=== PATIENT | male | born 1955 | race Caucasian/White ===

== ENCOUNTER → 2021-01-28 07:32 | Outpatient (CLI) | payer MEDICARE, OTHER, SELFPAY ==
--- NOTE | 2021-01-28 07:35 | ECHOD_ITS ---
Reason For Study: Afib, Aflutter Procedure This was a 2D Doppler, Color Flow transthoracic echocardiogram. Exam performed in department. Left Ventricle Normal LV size. Left ventricular systolic function is normal. The estimated ejection fraction is 55 %. No regional wall motion abnormalities noted. Right Ventricle Normal RV size. Normal systolic function. Atria Normal left atrium. Normal right atrium. Mitral Valve Normal mitral valve. Tricuspid Valve Normal tricuspid valve. Mild (1+) tricuspid valve insufficiency. Pulmonary artery systolic pressure is 26 mmHg. Aortic Valve Normal aortic valve. Trisinus/trileaflet aortic valve. Pulmonic Valve Normal pulmonic valve. Great Vessels Normal aortic root. The pulmonary artery is normal size. Normal inferior vena cava. Pericardium/Pleural No pericardial effusion. Medication Diluted definity 3ml given slow IV push to enhance endocardial definition. MMode/2D Measurements & Calculations LVIDd: 4.4 cm IVSd: 1.2 cm Ao root diam: 3.5 cm LVIDs: 3.3 cm LVPWd: 1.0 cm RVDd: 4.5 cm FS: 25.5 % LAV(MOD-bp): 57.0 ml LVAd ap4: 37.0 cm2 SV(MOD-sp4): 74.5 ml LAV(MOD-bp) Indexed: 24.3 ml/m2 LVLd ap4: 8.6 cm LAV(MOD-sp2): 48.9 ml EDV(MOD-sp4): 133.9 ml LAV(MOD-sp4): 57.8 ml EDV(sp4-el): 134.8 ml LVAs ap4: 22.0 cm2 LVLs ap4: 7.1 cm ESV(MOD-sp4): 59.5 ml ESV(sp4-el): 58.1 ml EF(MOD-sp4): 55.6 % EF(sp4-el): 56.9 % SV(sp4-el): 76.7 ml LA A4 area: 20.9 cm2 LA dimension(2D): 4.2 cm RA A4 area: 12.4 cm2 Doppler Measurements & Calculations MV E max víctor: 77.8 cm/sec Lat Peak E' Víctor: 10.8 cm/sec Med Peak E' Víctor: 7.9 cm/sec MV A max víctor: 36.2 cm/sec E/E' lat: 7.2 E/E' med: 9.9 MV E/A: 2.1 Ao V2 max: 121.0 cm/sec LV V1 max: 99.3 cm/sec PA V2 max: 102.9 cm/sec Ao max P.9 mmHg LV V1 max P.9 mmHg Ao V2 mean: 78.0 cm/sec Ao mean P.8 mmHg Ao V2 VTI: 27.1 cm TR max víctor: 235.1 cm/sec TR max P.1 mmHg ECHO/Echo Complete W/ Contrast Interpretation Summary Normal LV size. Left ventricular systolic function is normal. The estimated ejection fraction is 55 %. Pulmonary artery systolic pressure is 26 mmHg. Structurally normal valves. Ordering Physician: Quinton Colon Referring Physician: Wilma Dial Performed By: Lana Sauceda, RDKAVITHA, RVT
== END ==
PROVIDERS: PCP Internal Medicine; Referring Provider Internal Medicine Cardiovascular Disease; Visit Provider Internal Medicine Cardiovascular Disease
DX: I48.0 Paroxysmal atrial fibrillation (principal)
CPT/HCPCS: 93306; Q9957; A4216; C8929; J3490

== ENCOUNTER → 2022-08-01 | Outpatient (CLI) | payer MEDICARE, OTHER, SELFPAY | END | disposition home or self-care (01) | LOC: PSN 07:02 | PROVIDERS: PCP Internal Medicine; Visit Provider Physician Assistant Medical | DX: R00.1 Bradycardia, unspecified (principal); I48.0 Paroxysmal atrial fibrillation | CPT/HCPCS: 93225; 93226 ==

== ENCOUNTER → 2023-06-04 | Outpatient (CLI) | payer MEDICARE, OTHER, SELFPAY ==
--- OUTSIDE RECORDS SUMMARY | 2023-06-04 09:32 | XMS RPT_ITS | CCD ---
Author Name Unknown Address [email or web address] [place] [address] Organization [facility] Care Team Providers Care Custody Officer Name Role Phone Zarrabi, Wilma Unavailable Unavailable Zarrabi, Wilma Unavailable Unavailable Zarrabi, Wilma Unavailable Unavailable Zarrabi, Wilma Unavailable Fady Tariq Unavailable Unavailable Zarrabi, Wilma Unavailable Unavailable Unavailable Yojana ORTIZ Wilma Primary Care Provider ZARRABI, WILMA Primary Care Unavailable ARI PEREZ Attending Unavailable CHRIS CHAVEZ Attending Unavailable ZARRABI, WLIMA Primary Care Unavailable CHRIS CHAVEZ Admitting Unavailable CHAVEZCHRIS Referring Unavailable ZARRABI, WILMA Primary Care Unavailable CHRIS CHAVEZ Attending Unavailable ZARRABI, WILMA Primary Care Unavailable CHRIS CHAVEZ Admitting Unavailable KENNETH HANNA Attending Unavailable CHRIS CHAVEZ Referring Unavailable ZARRABI, WILMA Primary Care Unavailable CHRIS CHAVEZ Admitting Unavailable DAI FRANKS Attending Unavailable CHRIS CHAVEZ Referring Unavailable ZARRABI, WILMA Primary Care Unavailable TANJA CHRISPHYLLIS WHITNEY Admitting Unavailable KJ HENSON Attending Unavailable CHRIS CHAVEZ Referring Unavailable ZARRABI, WILMA Primary Care Unavailable CHRIS CHAVEZ Admitting Unavailable DAI FRANKS Attending Unavailable CHRIS CHAVEZ Referring Unavailable ZARRABI, WILMA Primary Care Unavailable CHRIS CHAVEZ Admitting Unavailable CYNDI RAMIREZ Attending Unavailable CHRIS CHAVEZ Referring Unavailable ZARRABI, WILMA Primary Care Unavailable CHRIS CHAVEZ Admitting Unavailable DAI FRANKS Attending Unavailable CHRIS CHAVEZ Referring Unavailable ZARRABI, WILMA Primary Care Unavailable CHRIS CHAVEZ Admitting Unavailable KENNETH HANNA Attending Unavailable CHRIS CHAVEZ Referring Unavailable ZARRABI, WILMA Primary Care Unavailable CHRIS CHAVEZ Admitting Unavailable ZANA AGUERO Attending Unavailable CHAVEZCHRIS Referring Unavailable ZARRABI, WILMA Primary Care Unavailable CHRIS CHAVEZ Admitting Unavailable DAI FRANKS Attending Unavailable CHAVEZCHRIS Referring Unavailable TABATHARRABI, WILMA Primary Care Unavailable Wilma Dial MD Primary Care Provider Wilma Dial MD Unavailable Krissy Renae CMA Unavailable Unavailable MD WILMA DIAL Referring Unavailable MD WILMA DIAL Attending Unavailable MD WILMA DIAL Primary Care Unavailable Dr. Bree Betancourt Attending Unavailable MD WILMA DIAL Referring Unavailable MD WILMA IDAL Primary Care Unavailable Self, Referral Referring Unavailable Dr. Wilma Dial Primary Care Unavailable Zelda Boyd Attending Unavailable MD HARSHAD OSULLIVAN Admitting Unavailable ZARRABI, WILMA Primary Care Unavailable TABATHARRABI, WILMA Primary Care Unavailable YOJANA, WILMA Attending Unavailable TABATHARRABI, WILMA Primary Care Unavailable DUGLASABI, WILMA Attending Unavailable TABATHARRABI, WILMA Primary Care Unavailable YOJANA, WILMA Attending Unavailable DUGLASABI, WILMA Primary Care Unavailable WILMA DIAL Attending Unavailable TABATHARRABI, WILMA Primary Care Unavailable WILMA DIAL Attending Unavailable TABATHARRABI, WILMA Primary Care Unavailable Medications Current Medications Medication Drug Class(es) Dates Sig (Normalized) Sig (Original) acetaminophen 325 mg / oxyCODONE hydrochloride 5 mg oral tablet (3 sources) Opioid Agonist take 1 tablet by mouth every six hours as needed oxyCODONE-acetami nophen (Percocet) 5-325 mg tablet Take 1 tablet by mouth every 6 hours if needed for severe pain (7 - 10). 0 Active Calcium Carbonate (9 sources) CALCIUM CARBONAT E (CALCIUM 500 ORAL) Take by mouth. 0 Active calcium citrate 950 mg oral tablet (19 sources) Start: 04-11-2019 take 1 tablet by mouth once daily calcium citrate (Calcitrate) 200 mg (950 mg) tablet Take 1 tablet (200 mg) by mouth once daily. 0 04/11/2019 Active fish oil-omega-3 fatty acids 300-1,000 mg capsule (9 sources) take 1 capsule by mouth once daily fish oil-omega-3 fatty acids 300-1,000 mg capsule Take 2 g by mouth daily. 0 Active flecainide acetate 100 mg oral tablet (20 sources) Antiarrhythmic Start: 02-11-2021 take 1 tablet by mouth twice daily flecainide (TAMBOCOR) 100 MG tablet Take 100 mg by mouth 2 (two) times a day . 0 02/11/2021 Active Completed/Discontinued Medications Medication Drug Class(es) Dates Sig (Normalized) Sig (Original) amoxicillin 875 mg / clavulanate 125 mg oral tablet (1 source) Penicillin-class Antibacterial End: 09-22-2022 take 1 tablet by mouth in the morning amoxicillin-pot clavulanate (Augmentin) 875-125 mg tablet Take 1 tablet (875 mg) by mouth in the morning and 1 tablet (875 mg) before bedtime. 0 09/22/2022 Discontinued (Therapy completed) Fish Oil 1200 MG Oral Capsule (16 sources) Start: 04-11-2019 take 1 capsule by mouth once daily Fish Oil 1200 MG Oral Capsule TAKE 1 CAPSULE Daily Quantity: 0 Refills: 0 Ordered: 11-Apr-2019 DO Start : 11-Apr-2019 Active Problems Active Problems Problem Classification Problem Date Documented Da te Episodic/Chronic Administrative/social admission (4 sources) Advance directive discussed with patient; Translations: [Other specified counseling] Episodic Cardiac dysrhythmias (20 sources) Premature atrial contraction; Translations: [Ventricular premature beats] Onset: 07-05-2022 07-05-2022 Chronic Deficiency and other anemia (1 source) Anemia; Translations: [Anemia, unspecified] 09-22-2022 Episodic Diabetes mellitus with complications (20 sources) Hypertensive disorder; Translations: [Diabetes with other specified manifestations, type II or unspecified type, not stated as uncontrolled] Onset: 07-05-2022 09-22-2022 Chronic Diabetes mellitus without complication (20 sources) Type 2 diabetes mellitus; Translations: [Diabetes mellitus without mention of complication, type II or unspecified type, not stated as uncontrolled] Onset: 07-05-2022 07-05-2022 Chronic Essential hypertension (5 sources) Essential (primary) hypertension; Translations: [Essential (primary) hypertension] Onset: 07-05-2022 Chronic Heart valve disorders (2 sources) Irregular heart beat 09-22-2020 Episodic Past or Other Problems Problem Classification Problem Date Documented Da te Episodic/Chronic Abdominal pain (3 sources) Flank pain; Translations: [Unspecified abdominal pain] Onset: 09-16-2022 Resolved: 10-22-2022 09-16-2022 Episodic Appendicitis and other appendiceal conditions (6 sources) Acute appendicitis; Translations: [Unspecified acute appendicitis] Onset: 09-15-2022 Resolved: 09-22-2022 09-22-2022 Episodic Cardiac dysrhythmias (17 sources) Bradycardia; Translations: [Other specified cardiac dysrhythmias] Onset: 07-05-2022 07-05-2022 Episodic Coma; stupor; and brain damage (17 sources) Daytime somnolence; Translations: [Hypersomnia, unspecified] Onset: 07-05-2022 07-05-2022 Episodic Deficiency and other anemia (4 sources) Anemia, unspecified; Translations: [Anemia, unspecified] Onset: 09-22-2022 Episodic Fluid and electrolyte disorders (1 source) Hypo-osmolality and hyponatremia; Translations: [Hypo-osmolality and hyponatremia] Onset: 09-16-2022 Episodic Hemorrhoids (18 sources) External hemorrhoids; Translations: [External hemorrhoids without mention of complication] Onset: 07-05-2022 07-05-2022 Episodic Other aftercare (1 source) long-term (current) use of anticoagulants; Translations: [long-term (current) use of anticoagulants] Onset: 09-16-2022 Episodic Other lower respiratory disease (17 sources) Multiple nodules of lung; Translations: [Other nonspecific abnormal finding of lung field] Onset: 07-05-2022 07-05-2022 Episodic Other lower respiratory disease (17 sources) Snoring; Translations: [Other respiratory abnormalities] Onset: 07-05-2022 07-05-2022 Episodic Other non-traumatic joint disorders (19 sources) Hip pain; Translations: [Pain in joint, pelvic region and thigh] Onset: 07-05-2022 07-05-2022 Episodic Other non-traumatic joint disorders (16 sources) Pain in right knee; Translations: [Chronic pain of both knees] Onset: 07-05-2022 07-05-2022 Episodic Other nutritional; endocrine; and metabolic disorders (6 sources) Weight gain; Translations: [Abnormal weight gain] Onset: 07-05-2022 07-05-2022 Episodic Other screening for suspected conditions (not mental disorders or infectious disease) (20 sources) Liver function tests abnormal; Translations: [Patient encounter status] Onset: 03-13-2018 07-05-2022 Episodic Results Test Name Value Interpretation Reference Range Facil ity Vital Signs Date Time Vital Sign Value Performing Clinician Facility 03-25-2023 08:03-0400 Body height 182.9 cm Wilma Dial MD Work Phone: [facility] 03-25-2023 08:03-0400 Body mass index (BMI) [Ratio] 32.69 kg/m2 Wilma Dial MD Work Phone: [facility] 03-25-2023 08:03-0400 Body weight 109.32 kg Wilma Dial MD Work Phone: [facility] 03-25-2023 08:03-0400 Diastolic blood pressure 72 mm[Hg] Wilma Dial MD Work Phone: [facility] 03-25-2023 08:03-0400 Heart rate 56 /min Wilma Dial MD Work Phone: [facility] 03-25-2023 08:03-0400 Systolic blood pressure 122 mm[Hg] Wilma Dial MD Work Phone: [facility] 02-23-2023 08:00-0400 Body height 182.9 cm Wilma Dial MD Work Phone: [facility] 02-23-2023 08:00-0400 Body mass index (BMI) [Ratio] 32.96 kg/m2 Wilma Dial MD Work Phone: [phone] [place] [address] 02-23-2023 08:00-0400 Body weight 110.22 kg Wilma Dial MD Work Phone: [facility] 02-23-2023 08:00-0400 Diastolic blood pressure 74 mm[Hg] Wilma Dial MD Work Phone: [facility] 02-23-2023 08:00-0400 Heart rate 59 /min Wilma Dial MD Work Phone: [facility] 02-23-2023 08:00-0400 Systolic blood pressure 142 mm[Hg] Wilma Dial MD Work Phone: [facility] 09-22-2022 09:41-0400 Body height 182.9 cm Wilma Dial MD Work Phone: [facility] 09-22-2022 09:41-0400 Body mass index (BMI) [Ratio] 32.28 kg/m2 Wilma Dial MD Work Phone: [facility] 09-22-2022 09:41-0400 Body weight 107.96 kg Wilma Dial MD Work Phone: [facility] 09-22-2022 09:41-0400 Diastolic blood pressure 74 mm[Hg] Wilma Dial MD Work Phone: [facility] 09-22-2022 09:41-0400 Heart rate 74 /min Wilma Dial MD Work Phone: [facility] 09-22-2022 09:41-0400 Systolic blood pressure 118 mm[Hg] Wilma Dial MD Work Phone: [facility] 02-27-2022 08:03-0400 Body height 185.42 cm Wilma Dial Work Phone: [facility] Work Phone: 02-27-2022 08:03-0400 Body mass index (BMI) [Ratio] 33.25 kg/m2 Wilma Dial Work Phone: [facility] Work Phone: 02-27-2022 08:03-0400 Body surface area Derived from formula 2.37 m2 Wilma Newberryabi Work Phone: [facility] Work Phone: 02-27-2022 08:03-0400 Body weight 114.31 kg Wilma Dial Work Phone: [facility] Work Phone: 02-27-2022 08:03-0400 Diastolic blood pressure 73 mm[Hg] Wilma Dial Work Phone: [facility] Work Phone: 02-27-2022 08:03-0400 Heart rate 55 /min Wilma Dial Work Phone: [facility] Work Phone: 02-27-2022 08:03-0400 Systolic blood pressure 142 mm[Hg] Wilma Dial Work Phone: [facility] Work Phone: 08-12-2021 08:01-0400 Body height 185.42 cm Wilma Dial Work Phone: [facility] Work Phone: 08-12-2021 08:01-0400 Body mass index (BMI) [Ratio] 32.71 kg/m2 Wilma Dial Work Phone: [facility] Work Phone: 08-12-2021 08:01-0400 Body surface area Derived from formula 2.36 m2 Wilma Newberryabi Work Phone: [facility] Work Phone: 08-12-2021 08:01-0400 Body weight 112.45 kg Wilma Dial Work Phone: [facility] Work Phone: 08-12-2021 08:01-0400 Diastolic blood pressure 76 mm[Hg] Wilma Newberryabi Work Phone: [facility] Work Phone: 08-12-2021 08:01-0400 Heart rate 58 /min Wilma Newberryabi Work Phone: [facility] Work Phone: 08-12-2021 08:01-0400 Systolic blood pressure 126 mm[Hg] Wilma Newberryabi Work Phone: [facility] Work Phone: 05-14-2021 08:10-0500 Body height 182.88 cm Wilma Dial Work Phone: [facility] Work Phone: 05-14-2021 08:10-0500 Body mass index (BMI) [Ratio] 33.64 kg/m2 Wilma Newberryabi Work Phone: [facility] Work Phone: 05-14-2021 08:10-0500 Body surface area Derived from formula 2.33 m2 Wilma Dial Work Phone: [facility] Work Phone: 05-14-2021 08:10-0500 Body weight 112.49 kg Wilma Dial Work Phone: [facility] Work Phone: 05-14-2021 08:10-0500 Diastolic blood pressure 80 mm[Hg] Wilma Newberryabi Work Phone: [facility] Work Phone: 05-14-2021 08:10-0500 Heart rate 80 /min Wilma Newberryabi Work Phone: [facility] Work Phone: 05-14-2021 08:10-0500 Systolic blood pressure 110 mm[Hg] Wilma Michaelsrrabi Work Phone: [facility] Work Phone: 04-17-2021 09:12-0500 Body height 182.9 cm Chris Chavez MD Work Phone: [facility] 04-17-2021 09:12-0500 Body mass index (BMI) [Ratio] 33.23 kg/m2 Chris Chavez MD Work Phone: [facility] 04-17-2021 09:12-0500 Body weight 111.13 kg Chris Chavez MD Work Phone: [facility] 02-26-2021 10:17-0400 Body height 182.88 cm Wilma Newberryabi Work Phone: [facility] Work Phone: 02-26-2021 10:17-0400 Body mass index (BMI) [Ratio] 33.64 kg/m2 Wilma Newberryabi Work Phone: [facility] Work Phone: 02-26-2021 10:17-0400 Body surface area Derived from formula 2.33 m2 Wilma Newberryabi Work Phone: [facility] Work Phone: 02-26-2021 10:17-0400 Body weight 112.49 kg Wilma Newberryabi Work Phone: [facility] Work Phone: 02-26-2021 10:17-0400 Diastolic blood pressure 80 mm[Hg] Wilma Zarrabi Work Phone: [facility] Work Phone: 02-26-2021 10:17-0400 Heart rate 60 /min Wilma Michaelsrrabi Work Phone: [facility] Work Phone: 02-26-2021 10:17-0400 Systolic blood pressure 132 mm[Hg] Wilma Zarrabi Work Phone: [facility] Work Phone: 11-13-2020 08:22-0400 Body height 182.88 cm Wilma Newberryabi Work Phone: [facility] Work Phone: 11-13-2020 08:22-0400 Body mass index (BMI) [Ratio] 34.45 kg/m2 Wilma Michaelsrrabi Work Phone: [facility] Work Phone: 11-13-2020 08:22-0400 Body surface area Derived from formula 2.36 m2 Wilma Newberryabi Work Phone: [facility] Work Phone: 11-13-2020 08:22-0400 Body weight 115.21 kg Wilma Dial Work Phone: [facility] Work Phone: 11-13-2020 08:22-0400 Diastolic blood pressure 88 mm[Hg] Wilma Zarrabi Work Phone: [facility] Work Phone: 11-13-2020 08:22-0400 Heart rate 68 /min Wilma Newberryabi Work Phone: [facility] Work Phone: 11-13-2020 08:22-0400 Systolic blood pressure 138 mm[Hg] Wilma Zarrabi Work Phone: [facility] Work Phone: 09-22-2020 12:01-0400 Diastolic blood pressure 90 mm[Hg] Wilma Zarrabi Other Phone: [facility] 09-22-2020 12:01-0400 Heart rate 54 /min Wilmasheldon Dial Other Phone: [facility] 09-22-2020 12:01-0400 Respiratory rate 19 /min Wilma Dial Other Phone: [facility] 09-22-2020 12:01-0400 SaO2% (BldA) [Mass fraction] 100 % Wilmasheldon Dial Other Phone: [facility] 09-22-2020 12:01-0400 Systolic blood pressure 148 mm[Hg] Wilmasheldon Dial Other Phone: [facility] 09-22-2020 10:32-0400 Body height 182.8 cm Wilma Dial Other Phone: [facility] 09-22-2020 10:32-0400 Body weight 111 kg Wilma Dial Other Phone: [facility] 04-11-2019 10:20-0500 BMI (Body Mass Index) 35.67 kg/m2 Wilma Dial [facility] Work Phone: 04-11-2019 10:20-0500 Body weight 119.3 kg Wilma Dial [facility] Work Phone: 04-11-2019 10:20-0500 BP Diastolic 76 mm[Hg] Wilma Dial [facility] Work Phone: Encounters Encounter Date Encounter Type Care Provider Facility Start: 03-25-2023 End: 03-25-2023 ambulatory [facility] Start: 03-25-2023 End: 03-25-2023 Office outpatient visit 25 minutes Wilma Dial MD Work Phone: [facility] Procedures Date Procedure Procedure Detail Performing Clinician Start: 02-23-2023 Follow-up visit Follow-up WILMA DIAL Start: 02-19-2023 ALBUMIN, URINE RANDOM F ERICK DIAL Start: 02-19-2023 Comprehensive metabo lic 2000 panel - Serum or Plasma WILMA DIAL Start: 02-19-2023 Hemoglobin A1c/Hemoglobin.total in Blood WILMA DIAL Start: 02-19-2023 Urate [Mass/volume] in Serum or Plasma WILMA DIAL Start: 10-16-2022 CBC W Auto Different ial panel - Blood WILMA DIAL Start: 10-16-2022 Comprehensive metabo lic 2000 panel - Serum or Plasma WILMA DIAL Start: 10-16-2022 Ferritin [Mass/volum e] in Serum or Plasma WILMA DIAL Start: 10-16-2022 Hemoglobin A1c/Hemoglobin.total in Blood WILMA DIAL Start: 10-16-2022 IRON AND TIBC WILMA ESPINOZA Start: 10-16-2022 Lipid panel WILMA ESPAÑA Start: 10-16-2022 Magnesium [Mass/volu me] in Serum or Plasma WILMA DIAL Start: 10-16-2022 PROSTATE SPECIFIC AN TIGEN, SCREEN WILMA DIAL Start: 10-16-2022 Lipid 1996 panel - S gabriel or Plasma Wilma Dial MD Work Phone: Start: 09-22-2022 History of appendectomy S/P appendec heather Wilma Dial MD Work Phone: Start: 02-21-2022 Lipid 1996 panel - S gabriel or Plasma Wilma Dial MD Work Phone: Start: 09-22-2020 End: 09-22-2020 EKG impression Fady Tariq Start: 04-11-2019 Albumin, Urine Spot [place] Dial Start: 04-11-2019 Comprehensive metabo lic 2000 panel Wilma Dial Start: 04-11-2019 Hemoglobin glycosylated a1c Wilma Dial Start: 04-11-2019 PSA screening Wilma espinoza Start: 03-13-2018 PSA screening Plan of Treatment Date Care Activity Detail Author Start: 03-18-2024 Screening for malignant neoplasm of colon [facility] Start: 02-20-2024 Urine screening for protein Diabetes: Urine Protein Screening [facility] Start: 10-17-2023 Lipid panel Lipid Panel [facility] Start: 08-30-2023 Medicare Annual Wellness Visit Medicare Annual Wellness Visit (AWV) [facility] Start: 08-25-2023 End: 08-25-2023 Patient encounter procedure 08/25/2023 8:15 AM EDT Office Visit [facility] [address] [place] [phone] Wilma Dial MD [address] [place] [address] [facility] Start: 05-21-2023 Hemoglobin A1c measurement Diabetes: Hemoglobin A1C [facility] Start: 03-25-2023 End: 03-25-2024 Comprehensive metabolic 2000 panel - Serum or Plasma Comprehensive Metabolic Panel Lab Routine Hypertension associated with diabetes (CMS/HCC) Type 2 diabetes mellitus with other circulatory complications (CMS/HCC) Expected: 03/25/2023 (Approximate), Expires: 03/25/2024 [facility] Service Area Work Phone: Immunizations Immunization Date Immunization Notes Care Provider Fa cili 02-27-2022 Fluzone High-Dose Quadrivalent 0.7 ML Intramuscular Suspension Prefilled Syringe; Translations: [Fluzone High-Dose Quadrivalent 0.7 ML Intramuscular Suspension Prefilled Syringe] Wilma Dial Work Phone: [facility] Work Phone: Payers Date Payer Category Payer Private Health Insurance [id number] 2019 Private Health Insurance [id number] 2019 Unknown 2019 Medicare [id number] 2019 Medicare [id number] 1954 Unknown [id number] 2.16. [id number] 1954 Unknown [id number] 2.16. 840.1.016471.3.579.2.3 1954 Unknown [id number] 2.16. 840.1.501816.3.579.2. 1954 Unknown [id number] 2.16. 840.1.464883.3.579.2. 1954 Unknown [id number] 2.16. 840.1.838314.3.579.2. 1954 Unknown [id number] 2.16. 840.1.489975.3.579.2. 1954 Unknown [id number] 2.16. 840.1.127272.3.579.2. 1954 Unknown [id number] 2.16. 840.1.641049.3.579.2. 1954 Unknown [id number] 2.16. 840.1.268517.3.579.2. 1954 Unknown [id number] 2.16. 840.1.735543.3.579.2. 1954 Unknown [id number] 2.16. 840.1.927445.3.579.2. 1954 Unknown [id number] 2.16. 840.1.809845.3.579.2. 1954 Unknown [id number] 2.16. 840.1.805090.3.579.2. 1954 Unknown [id number] 2.16. 840.1.482926.3.579.2.356 1954 Unknown [id number] 2.16. 840.1.777963.3.579.2.356 1954 Unknown [id number] 2.16.8 40.1.268463.3.579.2.9 1954 Unknown [id number] 2.16.84 0.1.859055.3.579.2.1245 1954 Unknown [id number] 2.16.840 .1.090014.3.579.2.1245 1954 Unknown [id number] 2.16.8 40.1.301203.3.579.2.1244 1954 Unknown [id number] 2.16.8 40.1.351479.3.579.2.124 1954 Unknown [id number] 2.16.84 0.1.487015.3.579.2.1244 1954 Unknown [id number] 2.16.84 0.1.352545.3.579.2.4 1954 Unknown [id number] 2.16.84 0.1.127507.3.579.2.1244 Social History Date Type Detail Facility Assertion Unknown if ever smoked [facility] Work Phone: Tobacco smoking consumption unknown [facility] Start: 09-22-2022 End: 02-23-2023 Never smoked tobacco Never smoked tobacco [facility] Start: 02-19-2017 End: 08-28-2022 Tobacco smoking status NHIS Never smoked tobacco [facility] Start: 02-19-2017 Tobacco use and exposure Former smokeless tobacco user [facility] Start: 04-17-2021 End: 05-28-2021 Alcohol intake Ex-drinker (finding) [facility] Start: 1955 Sex Assigned At Not on file [facility] Start: 09-12-2022 End: 03-25-2023 Exposure to SARS-CoV-2 (event) Not sure [facility] Start: 08-28-2022 Tobacco use and exposure Smokeless tobacco non-user [facility] Work Phone: Start: 09-22-2022 End: 03-25-2023 Alcohol intake Lifetime non-drinker (finding) [facility] Work Phone: Start: 09-22-2022 End: 02-23-2023 Tobacco use panel [facility] NEGATED: Highlighted row - - [facility] Work Phone: Functional Status Date Assessment Result Facility NEGATED: Highlighted row Functional performance Functional status health issues are not documented Disease [facility] Work Phone: Mental Status Date Assessment Result Facility NEGATED: Highlighted row Cognitive function [Interpretation] Cognitive status health issues are not documented Disease [facility] Work Phone: Clinical Notes 04-30-2021 to 03-25-2023 Wilma Dial MD - 03/25/2023 8:00 AM Evy Dial MD - 02/23/2023 8:00 AM Evy Dial MD - 09/22/2022 9:45 AM Cynthia Franks PTA - 05/28/2021 7:00 AM EST Note Date & Type Note Facility 03-25-2023 History of Present illness Narrative Subjective Patient ID: Tarsha Montelongo is a 68 y.o. male who presents for Follow-up (1 MONTH F/U BLOOD PRESSURE CHECK ). HPI HTN F/U. F/U ON BP AND BS LOG , HTN IS IMPROVING ,DM2 IS STABLE.. HAS NO COMPLAINTS.. Review of Systems Constitutional: Negative for chills and fever. HENT: Negative. Negative for congestion, postnasal drip and rhinorrhea. Eyes: Negative. Negative for visual disturbance. Respiratory: Negative for cough, shortness of breath and wheezing. Cardiovascular: Negative. Negative for chest pain, palpitations and leg swelling. Gastrointestinal: Negative. Negative for abdominal distention, abdominal pain, constipation, diarrhea, nausea and vomiting. Endocrine: Negative. Genitourinary: Negative for dysuria and urgency. Musculoskeletal: Negative. Negative for back pain. Skin: Negative. Negative for rash. Allergic/Immunologic: Negative for immunocompromised state. Neurological: Negative. Negative for dizziness, weakness, light-headedness and headaches. Psychiatric/Behavioral: Negative. Negative for agitation. Objective Physical Exam Constitutional: General: He is not in acute distress. HENT: Head: Normocephalic. Nose: Nose normal. Mouth/Throat: Mouth: Mucous membranes are moist. Eyes: Conjunctiva/sclera: Conjunctivae normal. Pupils: Pupils are equal, round, and reactive to light. Cardiovascular: Rate and Rhythm: Normal rate and regular rhythm. Pulses: Normal pulses. Heart sounds: Normal heart sounds. Pulmonary: Effort: No respiratory distress. Breath sounds: No wheezing. Chest: Chest wall: No tenderness. Abdominal: General: Abdomen is flat. Bowel sounds are normal. Palpations: Abdomen is soft. Tenderness: There is no abdominal tenderness. Musculoskeletal: General: No tenderness. Normal range of motion. Cervical back: Normal range of motion. Lymphadenopathy: Cervical: No cervical adenopathy. Skin: General: Skin is warm and dry. Findings: No rash. Neurological: General: No focal deficit present. Mental Status: He is alert. Mental status is at baseline. Psychiatric: Mood and Affect: Mood normal. Behavior: Behavior normal. Assessment/Plan 1. Hypertension associated with diabetes (CMS/HCC) Comprehensive Metabolic Panel 2. H/O: gout Uric Acid 3. Type 2 diabetes mellitus with other circulatory complications ([facility]) Comprehensive Metabolic Panel Hemoglobin A1C ADVISED TO HAVE LOW FAT AND LOW CALORIE , LOW URIC ACID DIET AND TO LOOSE WEIGHT, DAILY EXERCISE. MONITOR BP GOAL BP LOWER THAN 130/80 LOW SALT EXERCISE DAILY 1800 LA ADA HGA1C GOAL LESS THAN 7 LOSE WT EXERCISE DAILY ADVISED FOR FALL PRECAUTION . MDM 1) COMPLEXITY: MORE THAN 1 STABLE CHRONIC CONDITION ADDRESSED 2)DATA: TESTS INTERPRETED AND OR ORDERED, TOOK INDEPENDENT HISTORY OR RECORDS REVIEWED 3)RISK: MODERATE RISK DUE TO NATURE OF MEDICAL CONDITIONS/COMORBIDITY OR MEDICATIONS ORDERED OR SURGICAL OR PROCEDURE REFERRAL, . 5 mon documented in this encounter [facility] Work Phone: 02-23-2023 History of Present illness Narrative Subjective Patient ID: Tarsha Montelongo is a 68 y.o. male who presents for Follow-up (4 mo labs). HPI Lab AND HTN F/U. HAD INTENTIONAL WEIGHT LOSS. HAS BP FLUCTUATIONS (BETWEEN 140/80 TO 100/60). S/P RECENT GOUT ATTACK. Review of Systems Constitutional: Negative for chills and fever. HENT: Negative. Negative for congestion, postnasal drip and rhinorrhea. Eyes: Negative. Negative for visual disturbance. Respiratory: Negative for cough, shortness of breath and wheezing. Cardiovascular: Negative. Negative for chest pain, palpitations and leg swelling. Gastrointestinal: Negative. Negative for abdominal distention, abdominal pain, constipation, diarrhea, nausea and vomiting. Endocrine: Negative. Genitourinary: Negative for dysuria and urgency. Musculoskeletal: Negative. Negative for back pain. Skin: Negative. Negative for rash. Allergic/Immunologic: Negative for immunocompromised state. Neurological: Negative. Negative for dizziness, weakness, light-headedness and headaches. Psychiatric/Behavioral: Negative. Negative for agitation. Objective Physical Exam Constitutional: General: He is not in acute distress. HENT: Head: Normocephalic. Nose: Nose normal. Mouth/Throat: Mouth: Mucous membranes are moist. Eyes: Conjunctiva/sclera: Conjunctivae normal. Pupils: Pupils are equal, round, and reactive to light. Cardiovascular: Rate and Rhythm: Normal rate and regular rhythm. Pulses: Normal pulses. Heart sounds: Normal heart sounds. Pulmonary: Effort: No respiratory distress. Breath sounds: No wheezing. Chest: Chest wall: No tenderness. Abdominal: General: Abdomen is flat. Bowel sounds are normal. Palpations: Abdomen is soft. Tenderness: There is no abdominal tenderness. Musculoskeletal: General: No tenderness. Normal range of motion. Cervical back: Normal range of motion. Lymphadenopathy: Cervical: No cervical adenopathy. Skin: General: Skin is warm and dry. Findings: No rash. Neurological: General: No focal deficit present. Mental Status: He is alert. Mental status is at baseline. Psychiatric: Mood and Affect: Mood normal. Behavior: Behavior normal. Assessment/Plan 1. Hypertension associated with diabetes ([facility]) 2. Type 2 diabetes mellitus with other circulatory complications ([facility]) 3. H/O: gout TEST RESULTS WERE DISCUSSED. ADVISED TO HAVE LOW FAT AND LOW CALORIE, LOW URIC ACID DIET AND TO LOOSE WEIGHT, DAILY EXERCISE. MONITOR BP GOAL BP LOWER THAN 130/80 LOW SALT EXERCISE DAILY ADVISED TO TAKE METOPROLOL IN THE MORNING AND LISINOPRIL IN THE EVENING TO PREVENT FLUCTUATIONS. (OR TAKE 1/2 TAB OF LISINOPRIL Q AM AND 1/2 TAB OF 20 MG Q PM. MDM 1) COMPLEXITY: 1 UNDIAGNOSED NEW PROBLEM WITH UNCERTAIN PROGNOSIS 2)DATA: TESTS INTERPRETED AND OR ORDERED, TOOK INDEPENDENT HISTORY OR RECORDS REVIEWED 3)RISK: MODERATE RISK DUE TO NATURE OF MEDICAL CONDITIONS/COMORBIDITY OR MEDICATIONS ORDERED OR SURGICAL OR PROCEDURE REFERRAL, . 1 mon documented in this encounter [facility] Work Phone: 09-22-2022 History of Present illness Narrative Subjective Patient ID: Tarsha Montelongo is a 67 y.o. male who presents for Follow-up (FU ER FOR APPENDESITIS LAST Thursday PT DOING WELL). HPI F/U AFTER HOSPITAL STAY FOR RLQ ABDOMINAL PAIN AND WAS DX WITH APPENDICITIS , WHICH LATER ON RUPTURED . S/P APPENDECTOMYFINISHED THE COURSE OF ANTIBIOTIC . RLQ ABDOMINAL PAIN IS IMPROVING. Review of Systems Constitutional: Negative for chills and fever. HENT: Negative. Negative for congestion, postnasal drip and rhinorrhea. Eyes: Negative. Negative for visual disturbance. Respiratory: Negative for cough, shortness of breath and wheezing. Cardiovascular: Negative. Negative for chest pain, palpitations and leg swelling. Gastrointestinal: Negative for abdominal distention, abdominal pain, constipation, diarrhea, nausea and vomiting. S/P APPENDECTOMY Endocrine: Negative. Genitourinary: Negative for dysuria and urgency. Musculoskeletal: Negative. Negative for back pain. Skin: Negative. Negative for rash. Allergic/Immunologic: Negative for immunocompromised state. Neurological: Negative. Negative for dizziness, weakness, light-headedness and headaches. Psychiatric/Behavioral: Negative. Negative for agitation. Objective Physical Exam Constitutional: General: He is not in acute distress. HENT: Head: Normocephalic. Nose: Nose normal. Mouth/Throat: Mouth: Mucous membranes are moist. Eyes: Conjunctiva/sclera: Conjunctivae normal. Pupils: Pupils are equal, round, and reactive to light. Cardiovascular: Rate and Rhythm: Normal rate and regular rhythm. Pulses: Normal pulses. Heart sounds: Normal heart sounds. Pulmonary: Effort: No respiratory distress. Breath sounds: No wheezing. Chest: Chest wall: No tenderness. Abdominal: General: Abdomen is flat. Bowel sounds are normal. Palpations: Abdomen is soft. Comments: HEALED SURGICAL SCARS OF APPENDECTOMY WITH BRUISED AREAS AROUND SURGICAL SCARS AND MID TENDERNESS Musculoskeletal: General: No tenderness. Normal range of motion. Cervical back: Normal range of motion. Lymphadenopathy: Cervical: No cervical adenopathy. Skin: General: Skin is warm and dry. Findings: No rash. Neurological: General: No focal deficit present. Mental Status: He is alert. Mental status is at baseline. Psychiatric: Mood and Affect: Mood normal. Behavior: Behavior normal. Assessment/Plan 1. Hypocalcemia Comprehensive Metabolic Panel Magnesium 2. Anemia, unspecified type CBC and Auto Differential 3. Hypertension associated with diabetes (CMS/HCC) Comprehensive Metabolic Panel 4. S/P appendectomy 5. H/O appendicitis TEST RESULTS WERE DISCUSSED. ADVISED TO HAVE LOW FAT AND LOW CALORIE DIET AND TO LOOSE WEIGHT, DAILY EXERCISE. ADVISED TO TAKE OTC CA + D 500 MG BID. ADVISED TO ADD MORE FIBER TO DIET. MDM 1) COMPLEXITY: MORE THAN 1 STABLE CHRONIC CONDITION ADDRESSED 2)DATA: TESTS INTERPRETED AND OR ORDERED, TOOK INDEPENDENT HISTORY OR RECORDS REVIEWED 3)RISK: MODERATE RISK DUE TO NATURE OF MEDICAL CONDITIONS/COMORBIDITY OR MEDICATIONS ORDERED OR SURGICAL OR PROCEDURE REFERRAL, . 1 mon documented in this encounter [facility] Work Phone: 09-16-2022 Note Send Summary: Discharge Summary Providers: Provider RoleProvider Name Zelda Edmondson [facility] rivera Faranak Note Recipients: Wilma Dial MD Discharge: Summary: Admission Date: .14-Sep-2022 19:39:00 Discharge Date: 16-Sep-2022 Attending Physician at Discharge: Zelda Boyd Admission Reason: Acute appendicitis(1) Final Discharge Diagnoses: Acute appendicitis Procedures: Date: 16-Sep-2022 08:54:00 Procedure Name: Laparoscopic appendectomy Condition at Discharge: Satisfactory Disposition at Discharge: .Home Vital Signs: T PRBPMAPSpO2 [id number]/6493% Date/Time09/16 9: 9: 9: 9: 9:45 Range(36.2C - 37.4C ) (62 - 101 ) (16 - 20 ) (102 - 126 )/ (58 - 73 ) (93% - 96% ) Highest temp of 37.4 C was recorded at 09/15 7:30 Date: Weight/Scale Type:Height: 14-Sep-2022 23:81323.4 kg / iqi314.8 cm Physical Exam: Constitutional: awake/alert/oriented x3, not in acute distress, Eyes: PERRL, EOMI, clear sclera ENMT: normal hearing, mucous membranes moist, no pharyngeal erythema or exudates Head/Neck: neck supple, no apparent injury, no JVD, no lymphadenopathy, trachea midline Respiratory/Thorax: patent airways, clear to auscultation bilaterally, no crackles or wheezing or rhonchi Cardiovascular: Regular, rate and rhythm, no murmurs, 2+ equal pulses of the extremities Gastrointestinal: nondistended, positive bowel sounds, soft, mild tenderness along the right lower quadrant, dressing incision clean intact Extremities: no edema Neurological: intact senses, motor, response and reflexes, normal strength, babinski negative Psychological: Appropriate mood and behavior Skin: warm, no rashes Hospital Course: 67-year-old male with a past medical history of obesity, hypertension, paroxysmal atrial fibrillation on Xarelto who presented to the emergency room for abdominal pain. Patient was found to have an acute appendicitis associated with leukocytosis and hyponatremia. Patient placed on n.p.o. and given IV fluids with pain control. Seen by surgery and s/p laparoscopic appendectomy doing very well and no complications after procedure. Denies any abdominal pain significantly or nausea vomiting. Awake alert and uneventful clinical course. Given IV antibiotics we will switch to oral antibiotics on discharge. Giving Percocet 5/325 mg p.o. every 6 hours as needed for total of 10 tablets. Dressing instructions also given with education, can resume Xarelto on Thursday Medically stable for DC at this time time to dc > 35 mins Discharge Information: and Continuing Care: Lab Results - Pending: Surgical Pathology Drawn at 16-Sep-2022 08:25:00 Radiology Results - Pending: None Discharge Instructions: Activity: activity as tolerated. Nutrition/Diet: low fat Wound Care: Other Instructions: Patient had uneventful laparoscopic appendectomy. Can have regular diet and discharge home today. Recommend 10 tablets of 5mg Percocet for post-operative pain for 2 days. May resume Xarelto on Thursday. He has telephone follow up with surgeon scheduled for 10/02/22 at 11:30am. Discharge Instructions: Keep incisions clean and dry. Leave steri strips in place until they fall off on their own. You may shower, but no submersion in water (ie no bathtub or swimming pool) until incisions have healed. Avoid lifting >10lbs for the next 4 weeks. Notify physician if worsening abdominal pain, fevers, redness or drainage at your incisions, or inability to tolerate oral intake. Follow Up Appointments: Follow-Up Appointment 01: Physician/Dept/Service: follow PCP Call to Schedule in: 1 week Follow-Up Appointment 02: Physician/Dept/Service: follow surgery as directed and resume xarelto on Thursday09/19/2022. Discharge Medications: Home Medication lisinopril 20 mg oral tablet - 1 tab(s) orally once a day Xarelto 20 mg oral tablet - 1 tab(s) orally once a day (in the evening) flecainide 50 mg oral tablet - 1 tab(s) orally every 12 hours metoprolol succinate 25 mg oral tablet, extended release - 0.5 tab(s) orally once a day Cipro 500 mg oral tablet - 1 tab(s) orally 2 times a day metroNIDAZOLE 500 mg oral tablet - 1 tab(s) orally 3 times a day oxycodone-acetaminophen 5 mg-325 mg oral tablet - 1 tab(s) orally every 6 hours PRN Medication DNR Status: Code StatusCode Status order at time of discharge: Full Code Electronic Signatures: Zelda Boyd) (Signed 16-Sep-2022 10:48) Authored: Send Summary, Summary Content, Ongoing Care, DNR Status, Note Completion Last Updated: 16-Sep-2022 10:48 by Zelda Boyd) References: 1. Data Referenced From Consult-Surgery 15-Sep-2022 08:51 [facility] 09-16-2022 Note Post Operative Note: PreOp Diagnosis: Acute appendicitis Post-Procedure Diagnosis: Acute perforated appendicitis with feculent peritonitis Procedure: Laparoscopic appendectomy Surgeon: Bree Betancourt Resident/Fellow/Other Bag End Sewer: n/a Anesthesia: General Estimated Blood Loss (mL): 20cc Specimen: yes. Appendix Complications: None Findings: Acute perforated appendicitis with feculent peritonitis. Perforation was near base, but had enough tissue to staple across. Patient Returned To/Condition: PACU / Stable Operative Report Dictated: Dictation: not applicable - note contains Operative Report Operative Report: Indication: Patient is a 67-year-old male who presented with acute appendicitis. He had significant inflammation on CT scan. Risks and benefits of appendectomy were discussed and the patient was agreeable to proceed with surgery. He takes Xarelto for Afib. He inadvertently received a higher than ordered dose of heparin and therefore was treated with antibiotics for 24 hours before proceeding with appendectomy. Procedure: The patient was brought to the operating room and placed in supine position with left arm tucked. General anesthesia was induced. The patient's abdomen was prepped and draped. A Veress needle was inserted in the left upper quadrant and abdomen insufflated. An infraumbilical incision was created and a 5mm optical trocar was introduced. There was no evidence of injury at the trocar site or Veress site. The Veress needle was removed and the camera was changed to a 30 degree scope. The patient was placed in Trendelenburg position. A 12mm left lower quadrant and 5mm suprapubic port were placed under direct visualization after local anesthetic infiltration. The patient was rotated to the left. His cecum and appendix were adherent to the abdominal wall. This was swept down bluntly and in doing so exposed a pocket of pus. This was evacuated with a suction four slide machine operator. There was also a small fecalith that was removed with a grasper. There was a perforation of the appendix was near the base, but still with enough tissue to create a mesenteric window and staple across the base. The small intestine was swept medially exposing the base of the appendix. The appendix was retracted and dissected away from the antimesenteric fat of the terminal ileum to which it was adherent. The cecum was also partially mobilized from the abdominal wall to allow for better exposure of the appendiceal base. These tissues were all significantly inflamed, including some necrotic appearance at the mesentery underlying the base of the appendix. The terminal ileum appeared normal. A window was created in the base of the appendiceal mesentery using blunt dissection. The base of the appendix was transected with a blue load of an Endo JABARI stapler. The mesentery was then transected with a white load of an Endo JABARI stapler. Hemostasis was confirmed. All purulent fluid was evacuated and the right lower quadrant was irrigated. The appendix was removed via an Endo Catch bag and the 12mm port was closed with 0 Vicryl on a laparoscopic suture passer. Skin incisions were closed with 4-0 Vicryl and steri strips. The patient tolerated the procedure well, was extubated and transferred to PACU in stable condition. Electronic Signatures: Bree Betancourt) (Signed 16-Sep-2022 09:08) Authored: Post Operative Note, Note Completion Last Updated: 16-Sep-2022 09:08 by Bree Betancourt) [facility] 09-16-2022 Note History & Physical R eviewed: I have reviewed the History and Physical dated: 15-Sep-2022 History and Physical reviewed and relevant findings noted. Patient examined to review pertinent physical findings.: Significant findings noted below Findings: Heparin assay level normalized this AM. INR 1.4. Home Medications Reviewed: no changes noted Allergies Reviewed: no changes noted ERAS (Enhanced Recovery After Surgery): ERAS Patient: no Consent: COVID-19 Consent: COVID-19 Risk ConsentSurgeon has reviewed maradiaga risks related to the risk of erik COVID-19 and if they contract COVID-19 what the risks are. Electronic Signatures: Bree Betancourt) (Signed 16-Sep-2022 06:29) Authored: History & Physical Reviewed, ERAS, Consent, Note Completion Last Updated: 16-Sep-2022 06:29 by Bree Betancourt) [facility] 09-15-2022 Note History of Present I llness: HPI: TARSHA MONTELONGO is a 67 year old Male Who presented to the emergency room for abdominal pain with poor oral intake. On presentation, blood pressure 158/72, heart rate 74, respiratory rate 20, afebrile, saturation O2 98% on room air. Pertinent findings on blood work-up; WBC 18,800, sodium 131, and the rest is grossly within normal limits. CT scan of the abdomen pelvis showed an acute appendicitis. Patient was given in the emergency room IV Dilaudid, Zofran, Zosyn, and IV fluids and then admitted to the medical service for further investigation and management. Upon encounter now, patient reports having pain now mainly in the right lower quadrant. The pain started earlier in the day when it was mainly epigastric and periumbilical. It was sharp constant. Then it moved to his right lower quadrant area. He had 3 episodes of vomiting and he had sweats. No fever. He did not have any diarrhea or constipation or bloody bowel movements. Review of Systems: 10 systems were reviewed and were negative except for those noted in the history of present illness. Past medical history: Obesity, diabetes mellitus, hypertension, bradycardia, bilateral knees pain, lung nodules, paroxysmal atrial fibrillation Past surgical history: Left hand and left leg surgeries. Pelvic surgery. Social history: Nonsmoker, no alcohol abuse Family history: Mother with diabetes. Father with LA and diabetes. Comorbidities: Comorbidites: Comorbid Conditionshypertension Allergies: No Known Allergies: Intolerances: morphine: Hallucinations Medications Prior to Admission: metoprolol succinate 25 mg oral capsule, extended release: 1 cap(s) orally once a day lisinopril 20 mg oral tablet: 1 tab(s) orally once a day Xarelto 20 mg oral tablet: 1 tab(s) orally once a day (in the evening) flecainide 50 mg oral tablet: 1 tab(s) orally every 12 hours. Objective: Objective Information: T PRBPMAPSpO2 [id number]/7396% Date/Time09/14 23: 23: 23: 23: 23:43 Range(36.5C - 36.8C ) (70 - 78 ) (18 - 20 ) (132 - 158 )/ (72 - 76 ) (96% - 98% ) Pain reported at 09/14 23:43: 4 = Moderate Physical Exam by System: Constitutional: awake/alert/oriented x3, not in acute distress, Eyes: PERRL, EOMI, clear sclera ENMT: normal hearing, mucous membranes moist, no pharyngeal erythema or exudates Head/Neck: neck supple, no apparent injury, no JVD, no lymphadenopathy, trachea midline Respiratory/Thorax: patent airways, clear to auscultation bilaterally, no crackles or wheezing or rhonchi Cardiovascular: Regular, rate and rhythm, no murmurs, 2+ equal pulses of the extremities Gastrointestinal: nondistended, positive bowel sounds, soft, there is severe tenderness along the right lower quadrant Extremities: no edema Neurological: intact senses, motor, response and reflexes, normal strength, babinski negative Psychological: Appropriate mood and behavior Skin: warm, no rashes Recent Lab Results: Results: CBC: 09/14/2022 20:09 \ Hgb / \ 17.0 / WBC Plt 18.8 H 237 / Hct \ / 47.8 \ RBC: 5.39 MCV: 89 Neutrophil %: 93.1 BMP: 09/14/2022 20:09 NA+ Cl- BUN / 131 L 97 L 18 / Glucose 194 H K+ HCO3- Creat \ 4.3 24 1.11 \ Calcium : 10.1 Anion Gap : 14 Radiology Results: Results: Impression: Acute appendicitis. Reactive edematous thickening of the cecum also noted. Changes of the terminal ileum that may relate to underlying Crohn's or sequela of prior ileitis. Please correlate clinically. CT Abdomen and Pelvis with IV Contrast [Sep 14 2022 9:55PM] Assessment and Plan: Assessment: 67-year-old male with a past medical history of obesity, hypertension, snf paroxysmal atrial fibrillation on Xarelto who presented to the emergency room for abdominal pain. Patient was found to have an acute appendicitis associated with leukocytosis and hyponatremia. I will admit the patient to the inpatient medical service with vital signs and telemetry monitoring. I will make the patient n.p.o. I will continue with Zosyn 3.375 g IV every 6 hours and consult general surgery. Pain control. IV fluids normal saline at rate of 75 cc/hour. Because I am making the patient n.p.o., I will hold his lisinopril and metoprolol succinate. I will replace the latter by Lopressor 5 mg IV every 6 hours scheduled. I have no choice but to continue the flecainide as patient is currently rate and rhythm controlled. Due to the high probability of surgical intervention, I will replace the Xarelto by heparin drip. Pepcid for GI prophylaxis Full code (This note was generated with voice recognition software and may contain errors including spelling, grammar, syntax and misrecognition of what was dictated, that (more content not included)... [facility] 05-28-2021 History of Present illness Narrative [facility] OUTPATIENT REHABILITATION DAILY TREATMENT NOTE Today's Date 05/28/2021 Patient Name: Tarsha Montelongo Date of : 1955 Current Visit #: [id number] Authorized Visits: [id number] Case Name: Neck Pain History: Pre-Treatment Pain Scale: 2 Symptoms: gradually improved Functional Diagnosis: 1. Cervical radiculopathy due to degenerative joint disease of spine Clinical Information: Subjective: Pt reports neck is improving and is using home traction unit at home. Continues to have pain with end range flexion and some pain in shoulder too. Objective FOTO Score - 05/28/21 0709 OTHER FOTO Score 72 Cervical Spine: Muscle Strength Shoulder Shrug: Right: 5 Left: 5 Shoulder Abduction: Right: 5 Left: 5 Bicep: Right: 5 Left: 5 Tricep: Right: 5 Left: 5 Wrist Flexion: Right: 5 Left: 5 Wrist Extension: Right: 5 Left: 5 Digit Abduction: Right: 5 Left: 5 Additional Cervical Findings:Flex: 48 Ext: 42 R Rotation: 70 L Rotation:62 R side Bend: 38 L Side Bend: 36 Treatments: Physical Therapy Exercise Log - 05/28/21 0703 OTHER Notes Visit 7: 7:04 - 7:40 Therapeutic Exercise (81246) Parameters chin tucks - 5 sec x10 Intervention upper traps stretch - 20 sec x3 Parameters SNAGs 20 - sec x3 Intervention cervical extension with towel bracing - 10 sec x10 Parameters shoulder rolls x20 Intervention rows/ext L5 x15 Parameters bilat. ER BTB x15 Intervention perform mechanical traction (see below) Modalities Modalities -- Parameters x15 min, 30#/ 22# , 45 hold 15 release PT Treatment Times Therex Total Time 36 Direct Treatment Time 36 Total Treatment Time 36 Goals: Physical Therapy Ortho Goals: IMPAIRMENT: Patient will demonstrate improved postural awareness in PT sessions to facilitate mechanical alignment and function in 3 weeks. IMPAIRMENT: Improve pain from 8/10 to <4/10 during prolonged standing and walking in 4 weeks IMPAIRMENT: Improve AROM of Cervical Flexion and Extension by at least 10 degrees in 4 weeks. IMPAIRMENT: Improve AROM of Cervical Rotation by at least 10 degrees in 4 weeks. OTHER: Patient will increase FOTO score from 54 to at least 60 to show MDC/MCII and expected functional outcome in 4 weeks. OTHER: Patient will be able to properly demonstrate independence with HEP in 1 week. Patient Education: Quality of movement with patient demonstrated understanding. Post-Treatment Pain Scale: 2 Assessment: Patient had an expected response to treatment. Skilled Intervention demonstrated by modifications of treatment per exercise log including increased load and safety interventions per exercise log. Progress towards goals as expected. Plan for Next Visit: Discharge Dai Franks PTA STATE LICENSE, [id number] documented in this encounter [facility] 05-21-2021 History of Present illness Narrative [facility] OUTPATIENT REHABILITATION DAILY TREATMENT NOTE Today's Date 05/21/2021 Patient Name: Tarsha Montelongo Date of : 1955 Current Visit #: 7 Authorized Visits: 199 Case Name: Neck Pain History: Pre-Treatment Pain Scale: 1 Symptoms: gradually improved Functional Diagnosis: 1. Cervical radiculopathy due to degenerative joint disease of spine Clinical Information: Subjective: Pt denies change in med hx. He states he woke up Thursday and Thursday in the middle of the night with a lot of pain but was able to relieve sx with his stretches and woke up feeling much better. Objective Treatments: Physical Therapy Exercise Log - 05/21/21 0700 OTHER Notes Visit 6: 7:03 - 7:53 Therapeutic Exercise ([id number]) Parameters chin tucks - 5 sec x10 Intervention upper traps stretch - 20 sec x3 Parameters SNAGs 20 - sec x3 Intervention cervical extension with towel bracing - 10 sec x10 Parameters shoulder rolls x20 Intervention rows/ext L3 x15 Parameters bilat. ER BTB x15 Intervention perform mechanical traction (see below) Modalities Modalities Mechanical Traction Parameters x15 min, 30#/ 22# , 45 hold 15 release PT Treatment Times Therex Total Time 35 Modalities Total Time 15 Direct Treatment Time 50 Total Treatment Time 50 Goals: Physical Therapy Ortho Goals: IMPAIRMENT: Patient will demonstrate improved postural awareness in PT sessions to facilitate mechanical alignment and function in 3 weeks. IMPAIRMENT: Improve pain from 8/10 to <4/10 during prolonged standing and walking in 4 weeks IMPAIRMENT: Improve AROM of Cervical Flexion and Extension by at least 10 degrees in 4 weeks. IMPAIRMENT: Improve AROM of Cervical Rotation by at least 10 degrees in 4 weeks. OTHER: Patient will increase FOTO score from 54 to at least 60 to show MDC/MCII and expected functional outcome in 4 weeks. OTHER: Patient will be able to properly demonstrate independence with HEP in 1 week. Patient Education: Verbal HEP and Pain Management with patient verbalized understanding. Post-Treatment Pain Scale: 1 Assessment: Patient had an expected response to treatment. Skilled Intervention demonstrated by modifications of treatment per exercise log including increased load and increased volume and safety interventions per exercise log. Progress towards goals as expected. Plan for Next Visit: Treatment Visit with focus on stability Kenneth Hanna PT State License, [id number] documented in this encounter [facility] 05-16-2021 History of Present illness Narrative [facility] OUTPATIENT REHABILITATION DAILY TREATMENT NOTE Today's Date 05/16/2021 Patient Name: Tarsha Montelongo Date of : 1955 Current Visit #: 6 Authorized Visits: 199 Case Name: Neck Pain History: Pre-Treatment Pain Scale: 6 Symptoms: gradually improved Functional Diagnosis: 1. Cervical radiculopathy due to degenerative joint disease of spine Clinical Information: Subjective: Pt reports less radicular symptoms today and pain is getting more centralized into neck and back. Pt brought in home traction unit to get set up and educate. Objective Educated pt on home traction unit and set for patient. Treatments: Physical Therapy Exercise Log - 05/16/21 0830 OTHER Notes Visit 5: 8:30 - 9:10 Therapeutic Exercise ([id number]) Parameters chin tucks - 5 sec x10 Intervention upper traps stretch - 20 sec x3 Parameters SNAGs 20 - sec x3 Intervention cervical extension with towel bracing - 10 sec x10 Parameters scap retractions 10x10'' Intervention perform mechanical traction (see below) Modalities Modalities Mechanical Traction Parameters x15 min, 30#/ 22# , 45 sec hold 15 min release PT Treatment Times Therex Total Time 25 Modalities Total Time 15 Direct Treatment Time 40 Total Treatment Time 40 Goals: Physical Therapy Ortho Goals: IMPAIRMENT: Patient will demonstrate improved postural awareness in PT sessions to facilitate mechanical alignment and function in 3 weeks. IMPAIRMENT: Improve pain from 8/10 to <4/10 during prolonged standing and walking in 4 weeks IMPAIRMENT: Improve AROM of Cervical Flexion and Extension by at least 10 degrees in 4 weeks. IMPAIRMENT: Improve AROM of Cervical Rotation by at least 10 degrees in 4 weeks. OTHER: Patient will increase FOTO score from 54 to at least 60 to show MDC/MCII and expected functional outcome in 4 weeks. OTHER: Patient will be able to properly demonstrate independence with HEP in 1 week. Patient Education: Quality of movement with patient demonstrated understanding. Post-Treatment Pain Scale: 6 Assessment: Patient had an expected response to treatment. Skilled Intervention demonstrated by modifications of treatment per exercise log including increased load and safety interventions per exercise log. Progress towards goals as expected. Plan for Next Visit: Treatment Visit with focus on [facility] traction and stretching Dai Franks PTA STATE LICENSE, [id number] documented in this encounter [facility] 05-14-2021 History of Present illness Narrative [facility] OUTPATIENT REHABILITATION DAILY TREATMENT NOTE Today's Date 05/14/2021 Patient Name: Tarsha Montelongo Date of : 1955 Current Visit #: 5 Authorized Visits: 199 Case Name: Neck Pain History: Pre-Treatment Pain Scale: 5 Symptoms: stabilized Functional Diagnosis: 1. Cervical radiculopathy due to degenerative joint disease of spine Clinical Information: Subjective: Pt reports higher than avg pain coming in today, he had increased Objective Treatments: Physical Therapy Exercise Log - 05/14/21 0914 OTHER Notes Visit 4 [id number] Therapeutic Exercise ([id number]) Parameters chin tucks - 5 sec x10 Intervention upper traps stretch - 20 sec x3 Parameters SNAGs 20 - sec x3 Intervention cervical extension with towel bracing - 10 sec x10 Parameters scap retractions 10x10'' Intervention perform mechanical traction (see below) Modalities Modalities Mechanical Traction Parameters x20 min, 30#/ 22# , 45 sec hold 15 min release PT Treatment Times Therex Total Time 30 Modalities Total Time 25 Direct Treatment Time 55 Total Treatment Time 59 Goals: Physical Therapy Ortho Goals: IMPAIRMENT: Patient will demonstrate improved postural awareness in PT sessions to facilitate mechanical alignment and function in 3 weeks. IMPAIRMENT: Improve pain from 8/10 to <4/10 during prolonged standing and walking in 4 weeks IMPAIRMENT: Improve AROM of Cervical Flexion and Extension by at least 10 degrees in 4 weeks. IMPAIRMENT: Improve AROM of Cervical Rotation by at least 10 degrees in 4 weeks. OTHER: Patient will increase FOTO score from 54 to at least 60 to show MDC/MCII and expected functional outcome in 4 weeks. OTHER: Patient will be able to properly demonstrate independence with HEP in 1 week. Patient Education: Verbal HEP with patient verbalized understanding. Post-Treatment Pain Scale: 5 Assessment: Patient had an expected response to treatment. Skilled Intervention demonstrated by modifications of treatment per exercise log including assessment of patient's response and safety interventions per exercise log. Progress towards goals as expected. Plan for Next Visit: Treatment Visit with focus on progressing as tolerated Cyndi Ramirez PTA STATE LICENSE, [id number] documented in this encounter [facility] 05-09-2021 History of Present illness Narrative [facility] OUTPATIENT REHABILITATION DAILY TREATMENT NOTE Today's Date 05/09/2021 Patient Name: Tarsha Montelongo Date of : 1955 Current Visit #: 4 Authorized Visits: 199 Case Name: Neck Pain History: Pre-Treatment Pain Scale: 4 Symptoms: stabilized Functional Diagnosis: 1. Cervical radiculopathy due to degenerative joint disease of spine Clinical Information: Subjective: Pt reports neck hurting today and radicular numbness down R hand to fingers today. 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 Objective Treatments: Physical Therapy Exercise Log - 05/09/21 0835 OTHER Notes Visit 3: 8:30-9:20 Therapeutic Exercise ([id number]) Parameters chin tucks - 5 sec x10 Intervention upper traps stretch - 20 sec x3 Parameters SNAGs 20 - sec x3 Intervention cervical extension with towel bracing - 10 sec x10 Parameters scap retractions Intervention perform mechanical traction (see below) Modalities Modalities Mechanical Traction Parameters x20 min, 30#/ 22# , 45 sec hold 15 min release PT Treatment Times Therex Total Time 30 Modalities Total Time 20 Direct Treatment Time 50 Total Treatment Time 50 Goals: Physical Therapy Ortho Goals: IMPAIRMENT: Patient will demonstrate improved postural awareness in PT sessions to facilitate mechanical alignment and function in 3 weeks. IMPAIRMENT: Improve pain from 8/10 to <4/10 during prolonged standing and walking in 4 weeks IMPAIRMENT: Improve AROM of Cervical Flexion and Extension by at least 10 degrees in 4 weeks. IMPAIRMENT: Improve AROM of Cervical Rotation by at least 10 degrees in 4 weeks. OTHER: Patient will increase FOTO score from 54 to at least 60 to show MDC/MCII and expected functional outcome in 4 weeks. OTHER: Patient will be able to properly demonstrate independence with HEP in 1 week. Patient Education: Quality of movement with patient demonstrated understanding. Post-Treatment Pain Scale: 4 Assessment: Patient had an expected response to treatment. Skilled Intervention demonstrated by modifications of treatment per exercise log including increased load and safety interventions per exercise log. Progress towards goals as expected. Plan for Next Visit: Treatment Visit with focus on Mechanical tractiona dn stretching Dai Franks PTA STATE LICENSE, [id number] documented in this encounter [facility] 05-02-2021 History of Present illness Narrative [facility] OUTPATIENT REHABILITATION DAILY TREATMENT NOTE Today's Date 05/02/2021 Patient Name: Tarsha Montelongo Date of : 1955 Current Visit #: 2 Authorized Visits: 199 Case Name: Neck Pain History: Pre-Treatment Pain Scale: 4 Symptoms: stabilized Functional Diagnosis: 1. Cervical radiculopathy due to degenerative joint disease of spine Clinical Information: Subjective: Pt reports pain in neck and shoulders coming in with radicular symptoms down R UE and occasionally down L UE. Objective Treatments: Physical Therapy Exercise Log - 05/02/21916 OTHER Notes Visit 1: 9:15- 10:05 Therapeutic Exercise ([id number]) Intervention -- Parameters chin tucks - 5 sec x10 Intervention upper traps stretch - 20 sec x3 Parameters SNAGs 20 - sec x3 Intervention cervical extension with towel bracing - 10 sec x5 Parameters scap retractions Intervention perform mechanical traction Modalities Modalities Mechanical Traction Parameters x15 min, 30#/ 22# , 45 sec hold 15 min release PT Treatment Times Therex Total Time 35 Modalities Total Time 15 Direct Treatment Time 50 Total Treatment Time 50 Goals: Physical Therapy Ortho Goals: IMPAIRMENT: Patient will demonstrate improved postural awareness in PT sessions to facilitate mechanical alignment and function in 3 weeks. IMPAIRMENT: Improve pain from 8/10 to <4/10 during prolonged standing and walking in 4 weeks IMPAIRMENT: Improve AROM of Cervical Flexion and Extension by at least 10 degrees in 4 weeks. IMPAIRMENT: Improve AROM of Cervical Rotation by at least 10 degrees in 4 weeks. OTHER: Patient will increase FOTO score from 54 to at least 60 to show MDC/MCII and expected functional outcome in 4 weeks. OTHER: Patient will be able to properly demonstrate independence with HEP in 1 week. Patient Education: Quality of movement with patient demonstrated understanding. Post-Treatment Pain Scale: 5 Assessment: Patient had an expected response to treatment. Skilled Intervention demonstrated by modifications of treatment per exercise log including increased load and safety interventions per exercise log. Progress towards goals as expected. Plan for Next Visit: Treatment Visit with focus on Mechanical traction and stretching Dai Franks PTA STATE LICENSE, [id number] documented in this encounter [facility] 04-30-2021 History of Present illness Narrative [facility] OUTPATIENT REHABILITATION Evaluation Today's Date 04/30/2021 Patient Name: Tarsha Montelongo Date of : 1955 Case Name: Neck Pain Functional Diagnosis: 1. Cervical radiculopathy due to degenerative joint disease of spine Clinical Information: Subjective Referring Diagnosis: Cervical Radiculopathy Follow-up with physician: 05/13/2021 History of Present Illness Subjective History: Pt reports c/o mild neck pain as well as more intense pain in the right shoulder and arm. 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 He recently completed a Medrol dose pack which has helped relieve some of the pain. Previous Imaging: X-ray Hand dominance: right Pain Scale: Pain location: neck Average Pain: 3/10 Pain at highest: 8/10 Aggravating factors: turning head to the right, walking Easing factors: rest, Tylenol prn 24 Hour Symptom Behavior End of day pain: worse Personal Goals: Decrease pain Return to prior level of function Functional Mobility Status Current Activity Level: low active Premorbid Activity Level: very active Social Support: Yarsani, social, or cultural considerations to be made aware of before starting treatment: NoActivities of Daily Living: independent with allInstrumental Activities of Daily Living: to be assessed Sleep Assessment Preferred sleep position: on side (right side) Sleep disturbance: Sleep Disturbance Red Flags: None Comments: Barriers to Care: None Yarsani, social, or cultural considerations to be made aware of before starting treatment: No Cervical Spine: Muscle Strength Shoulder Shrug: Right: 5 Left: 5 Shoulder Abduction: Right: 5 Left: 5 Bicep: Right: 5 Left: 5 Tricep: Right: 5 Left: 5 Wrist Flexion: Right: 5 Left: 5 Wrist Extension: Right: 5 Left: 5 Digit Abduction: Right: 5 Left: 5 Other Findings Sensation: decreased Additional Cervical Findings: Range of Motion (degrees): Flexion: 42 Extension: 38 Right Rotation: 70 Left Rotation: 60 Right Side Bend: 32 :eft Side Bend: 36 FOTO: 54 Treatments: Physical Therapy Exercise Log - 04/30/21 1400 OTHER Notes Eval: 1:17 - 1:57 Therapeutic Exercise ([id number]) Intervention provided written HEP handouts consiting of the following: Parameters supine chin tucks Intervention upper traps stretch Parameters SNAGs Intervention cervical extension with towel bracing Parameters scap retractions PT Treatment Times Total Treatment Time 40 Goals: Physical Therapy Ortho Goals: IMPAIRMENT: Patient will demonstrate improved postural awareness in PT sessions to facilitate mechanical alignment and function in 3 weeks. IMPAIRMENT: Improve pain from 8/10 to <4/10 during prolonged standing and walking in 4 weeks IMPAIRMENT: Improve AROM of Cervical Flexion and Extension by at least 10 degrees in 4 weeks. IMPAIRMENT: Improve AROM of Cervical Rotation by at least 10 degrees in 4 weeks. OTHER: Patient will increase FOTO score from 54 to at least 60 to show MDC/MCII and expected functional outcome in 4 weeks. OTHER: Patient will be able to properly demonstrate independence with HEP in 1 week. CPT Code 36245 Low 68521 Moderate 78622 High History 0 1-2 3+ Comorbidities: cardiac history and HTN, Personal factors: chronicity or severity of the current condition Examination of body systems (elements of body structures & functions, activity limitations, and/or participation restrictions) 1-2 elements 3+ elements 4+ elements See below clinical impression Clinical Presentation Stable Evolving Unstable As evidenced by reproduction of or changes in symptoms with certain movements and reports of fluctuating symptoms over time Decision Making Low (FOTO >/= 69) Moderate (FOTO 34 - 68) High (FOTO </= 33) FOTO score= 54 Pt is a 66 y.o. male who presents to PT services with c/o neck pain and right shoulder pain. Upon assessment, pt has been found with the following impairments: decreased ROM, decreased stability, pain and Numbness/tingling. 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 The pt would benefit from skilled PT services focused on the above listed impairments and limitations in order to safely progress pt to their desired level of function. Pt to be discharged from OP PT services if/when goals are met, if they fail to make progress with conservative management in PT, if their level of progress plateaus, or if they do not maintain compliance with attendance or HEP. At this time, it is my clinical judgment that services are medically necessary. Plan of Care Frequency of Visits: 2 times per week Duration: 4 weeks Interventions: Therapeutic Exercise ([id number]), Neuromuscular Re-Education (17335), Manual Therapy (00156), Therapeutic/ Functional Activities (17522), Hot/Cold Pack (36225) and Mechanical Traction (12729) Rehab Potential: fair Suicide Screen Signs and Symptoms of Abuse/Neglect: No Actions Taken: No Suicide Risk: Does the patient feel like ending their life today?No Actions Taken: No Patient Education Provided Pt was educated on the benefits of therapy and importance of compliance with sessions and HEP for rehabilitation. Pt was also educated on treatment diagnosis, POC, and frequency/duration of treatment. Clinical Impression Pt would benefit from PT interventions for possible cervical stenosis to address impairments in ROM, functional strength and postural stability as well as pain control. Kenneth Hanna PT State License, [id number] documented in this encounter [facility] Cervical radiculopathy due to degenerative joint disease of spine [facility] Diagnosis Cervical radiculopathy due to degenerative joint disease of spine- Primary [facility] Diagnosis Cervical radiculopathy due to degenerative joint disease of spine- Primary [facility] Diagnosis Cervical radiculopathy due to degenerative joint disease of spine- Primary [facility] Diagnosis Cervical radiculopathy due to degenerative joint disease of spine- Primary [facility] Diagnosis Cervical radiculopathy due to degenerative joint disease of spine- Primary [facility] Diagnosis Hypocalcemia- Primary Anemia, unspecified type Hypertension associated with diabetes (CMS/HCC) Unspecified essential hypertension S/P appendectomy Other postprocedural status H/O appendicitis documented in this encounter [facility] Work Phone: Evaluation note* Diagnosis Hypertension associated with diabetes (CMS/HCC)- Primary Unspecified essential hypertension Type 2 diabetes mellitus with other circulatory complications (CMS/HCC) H/O: gout Personal history of endocrine, metabolic, and immunity disorders documented in this encounter [facility] Work Phone: Evaluation note* Diagnosis Hypertension associated with diabetes (CMS/HCC)- Primary Unspecified essential hypertension H/O: gout Personal history of endocrine, metabolic, and immunity disorders Type 2 diabetes mellitus with other circulatory complications (CMS/HCC) documented in this encounter [facility] Work Phone: History of Present illness Narrative* Past Medical, Surgical and Family History: reviewed and updated in chart. * Medications and Supplements: Medications and supplements, including calcium and vitamins reviewed and updated in chart. * No, the patient is not using opioids. * Patient Self Assessment of Health Status: fair. * Tobacco use: Non-User * Alcohol use: Non-User * Illicit drug use: Non-User * Current diet: Heart Healthy Diet and Diabetic Diet. * Exercise Frequency: the patient does not exercise. * Depression/Suicide Screening: . * During the past 2 weeks, the patient has not felt down, depressed or hopeless. * During the past 2 weeks, the patient has not felt little interest or pleasure in doing things. * Hearing Impairment: Patient has slight hearing impairment. * Cognitive Impairment: No cognitive impairment observed. * Bathing: performs independently. * Dressing: performs independently. * Walking: performs independently. * Managing Finances: performs independently. * Shopping: performs independently. * Managing Medications: performs independently. * Falls Risk Screening:. TARSHA has not fallen in the last 6 months. * Home safety risk factors: none. [facility] Work Phone: History of Present illness Narrative* Past Medical, Surgical and Family History: reviewed and updated in chart. * Medications and Supplements: Medications and supplements, including calcium and vitamins reviewed and updated in chart. * No, the patient is not using opioids. * Patient Self Assessment of Health Status: fair. * Tobacco use: Non-User * Alcohol use: Non-User * Illicit drug use: Non-User * Current diet: Heart Healthy Diet and Diabetic Diet. * Exercise Frequency: the patient does not exercise. * Depression/Suicide Screening: . * During the past 2 weeks, the patient has not felt down, depressed or hopeless. * During the past 2 weeks, the patient has not felt little interest or pleasure in doing things. * Hearing Impairment: Patient has slight hearing impairment. * Cognitive Impairment: No cognitive impairment observed. * Bathing: performs independently. * Dressing: performs independently. * Walking: performs independently. * Managing Finances: performs independently. * Shopping: performs independently. * Managing Medications: performs independently. * Falls Risk Screening:. TARSHA has not fallen in the last 6 months. * Home safety risk factors: none. * LAB ANS COLOGUARD F/U. F/U ON HTN, WHICH IS IMPROVING . 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 PT WAS ADVISED AT LAST VISIT TO D/C THE OTC IRON SUPPLEMENT (WITH HAVING ELEVATED FERRITIN) , BUT STILL TAKES IT .MEDICARE WELLNESS EXAM. CURRENTLY GETS PHYSICAL TX (BY ORTHO) FOR L SHOULDER PAIN.-10/08 [facility] Work Phone: History of Present illness NarrativeLAB F/U . F/U ON HTN. HAS NO COMPLAINTS.DM2 , HTN AND A.FIB HAVE BEEN STABLE.[facility] Work Phone: History of Present illness NarrativeLAB F/U . F/U ON HTN. HAS NO COMPLAINTS.DM2 , HTN AND A.FIB HAVE BEEN STABLE.[facility] Work Phone: History of Present illness NarrativeLAB F/U. F/U ON HTN, BP IS AROUND 120-130 /70-80 AT HOME . METOPROLOL WAS REDUCED RECENTLY BY CARDIO FOR HAVING BRADYCARDIA. BP IS ELEVATED TODAY, BUT IS ASYMPTOMATIC. PER PT IT GOES UP WHENEVER COMES FOR VISIT.[facility] Work Phone: History of Present illness NarrativeLAB F/U. F/U ON HTN, BP IS AROUND 120-130 /70-80 AT HOME . METOPROLOL WAS REDUCED RECENTLY BY CARDIO FOR HAVING BRADYCARDIA. BP IS ELEVATED TODAY, BUT IS ASYMPTOMATIC. PER PT IT GOES UP WHENEVER COMES FOR VISIT.[facility] Work Phone: Summary Purpose Family History No Family History Records Found Mother Name Dates Details Family history of type 2 juan m betes mellitus(V18.0, Z83.3) Status:Active Father Name Dates Details Family history of type 2 juan m betes mellitus(V18.0, Z83.3) Status:Active Family history of myocardial infarction(V17.3, Z82.49) Status:Active Mother Name Dates Details Family history of type 2 juan m betes mellitus(V18.0, Z83.3) Status:Active Father Name Dates Details Family history of type 2 juan m betes mellitus(V18.0, Z83.3) Status:Active Family history of myocardial infarction(V17.3, Z82.49) Status:Active Unknown Family Member Name Dates Details Family history of type 2 juan m betes mellitus: Mother, Father(V18.0, Z83.3) Status:Active Family history of myocardial infarction: Father(V17.3, Z82.49) Status:Active Unknown Family Member Name Dates Details Family history of type 2 juan m betes mellitus: Mother, Father(V18.0, Z83.3) Status:Active Family history of myocardial infarction: Father(V17.3, Z82.49) Status:Active Unknown Family Member Name Dates Details Family history of type 2 juan m betes mellitus: Mother, Father(V18.0, Z83.3) Status:Active Family history of myocardial infarction: Father(V17.3, Z82.49) Status:Active Unknown Family Member Name Dates Details Family history of type 2 juan m betes mellitus: Mother, Father(V18.0, Z83.3) Status:Active Family history of myocardial infarction: Father(V17.3, Z82.49) Status:Active Unknown Family Member Name Dates Details Family history of type 2 juan m betes mellitus: Mother, Father(V18.0, Z83.3) Status:Active Family history of myocardial infarction: Father(V17.3, Z82.49) Status:Active Unknown Family Member Name Dates Details Family history of type 2 juan m betes mellitus: Mother, Father(V18.0, Z83.3) Status:Active Family history of myocardial infarction: Father(V17.3, Z82.49) Status:Active Unknown Family Member Name Dates Details Family history of type 2 juan m betes mellitus: Mother, Father(V18.0, Z83.3) Status:Active Family history of myocardial infarction: Father(V17.3, Z82.49) Status:Active Unknown Family Member Name Dates Details Family history of myocardial infarction: Father(V17.3, Z82.49) Status:Active Family history of type 2 juan m betes mellitus: Mother, Father(V18.0, Z83.3) Status:Active Unknown Family Member Name Dates Details Family history of type 2 juan m betes mellitus: Mother, Father(V18.0, Z83.3) Status:Active Family history of myocardial infarction: Father(V17.3, Z82.49) Status:Active Unknown Family Member Name Dates Details Family history of type 2 juan m betes mellitus: Mother, Father(V18.0, Z83.3) Status:Active Family history of myocardial infarction: Father(V17.3, Z82.49) Status:Active Unknown Family Member Name Dates Details Family history of type 2 juan m betes mellitus: Mother, Father(V18.0, Z83.3) Status:Active Family history of myocardial infarction: Father(V17.3, Z82.49) Status:Active Unknown Family Member Name Dates Details Family history of type 2 juan m betes mellitus: Mother, Father(V18.0, Z83.3) Status:Active Family history of myocardial infarction: Father(V17.3, Z82.49) Status:Active Unknown Family Member Name Dates Details Family history of myocardial infarction: Father(V17.3, Z82.49) Status:Active Family history of type 2 juan m betes mellitus: Mother, Father(V18.0, Z83.3) Status:Active Unknown Family Member Name Dates Details Family history of type 2 juan m betes mellitus: Mother, Father(V18.0, Z83.3) Status:Active Family history of myocardial infarction: Father(V17.3, Z82.49) Status:Active Advance Directives No Advanced Directives Records FoundDocuments on File Type Date Recorded 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 NEW ONSET PAROXYSMAL A.FIB (BASED ON BARDY FINDINGS) AND PATIENT HAS STARTED XARELTO. C/O HIGH GLUCOSE READINGS RANGING 150-160 ON AVERAGE.6 MONTH F/U WITH LABS. NO COMPLAINTS TODAY.MEDICARE WELLNESS TODAY WITH LAB HAS BP LOG WITH HIMMEDICARE WELLNESS TODAY WITH LAB HAS BP LOG WITH HIM3 mo fu with labs, pt brought BP readings with him from home. PT STATES SUGAR IS GOING DOWN.3 mo fu with labs, pt brought BP readings with him from home. PT STATES SUGAR IS GOING DOWN.3 mo fu with labs, pt brought BP readings with him from home. PT STATES SUGAR IS GOING DOWN.6 MO F/U WITH LABS NO COMPLAINTS6 MO F/U WITH LABS NO COMPLAINTS Reason for Referral Specialty Diagnoses / Procedures Referred By Clark soni Referred To Contact Rehabilitation Diagnoses Cervical radiculopathy due to degenerative joint disease of spine Chris Chavez MD [address] [place] [address] [address] Referral ID Status Reason Start Date Expiration Date Visits Requested Visits Authorized [id number] Authorized Specialty Services Required/Pat ient's Best Interest 1 04/17/2022 1 1 Additional Source Comments (unrecognized sect ion and content) No Status Records FoundNo Status Records FoundNo Status Records FoundNo Status Records FoundNo Status Records FoundNo Status Records FoundNo Status Records FoundNo Status Records FoundNo Status Records Found INFORMATION SOURCE (unrecogn ized section and content) DATE CREATED AUTHOR AUTHOR'S JENNYFER IRIZARRY 05/02/2021 [facility] DATE CREATED AUTHOR AUTHOR'S ORGANIZ ATION 05/13/2021 [facility] DATE CREATED AUTHOR AUTHOR'S ORGANIZ ATION 06/01/2021 [facility] DATE CREATED AUTHOR AUTHOR'S ORGANIZ ATION 10/05/2022 [facility] DATE CREATED AUTHOR AUTHOR'S ORGANIZ ATION 10/09/2022 [facility] DATE CREATED AUTHOR AUTHOR'S ORGANIZ ATION 02/21/2023 [facility] DATE CREATED AUTHOR AUTHOR'S ORGANIZ ATION 02/23/2023 [facility] DATE CREATED AUTHOR AUTHOR'S ORGANIZ ATION 03/29/2023 [facility] <item> Privacy Markings (unrecogniz ed section and content) Section Author: Sharlene Mcpherson PROHIBITION ON REDISCLOSURE OF CONFIDENTIAL INFORMATION This notice accompanies a disclosure of information concerning a client made to you with the consent of such client. Reason for Visit (unrecogniz ed section and content) Reason Comments Physical Therapy Specialty Diagnoses / Procedures Referred By Contac t Referred To Contact Rehabilitation Diagnoses Cervical radiculopathy due to degenerative joint disease of spine Chris Chavez MD [address] [place] [id number] [facility] [place] [address] [place] [address] Referral ID Status Reason Start Date Expiration Date Visits Requested Visits Authorized [id number] Pending Review Specialty Services Required/Pat ient's Best Interest 1 04/17/2022 9 199 Referral ID Status Reason Start Date Expiration Date Visits Requested Visits Authorized [id number] Authorized Specialty Services Required/Pat ient's Best Interest 1104/17/2022 9 199 Reason Comments Follow-up FU ER FOR APPENDESIT IS LAST Thursday PT DOING WELL Reason Comments Follow-up 4 mo labs Reason Comments Follow-up 1 MONTH F/U BLOOD NE ESSURE CHECK Care Teams (unrecognized sec tion and content) Custody Officer Relationship Specialty Start Date End Date Wilma Dial MD [address] [place] [address] PCP - General Internal Medicine 02/18/17 Custody Officer Relationship Specialty Start Date End Date Wilma Dial MD [address] [place] [address] PCP - General Internal Medicine 02/18/17 Custody Officer Relationship Specialty Start Date End Date Wilma Dial MD [address] [place] [address] PCP - General Internal Medicine 02/18/17 Custody Officer Relationship Specialty Start Date End Date Wilma Dial MD [address] [place] [address] PCP - General Internal Medicine 02/18/17 Custody Officer Relationship Specialty Start Date End Date Wilma Dial MD [address] [place] [address] PCP - General Internal Medicine 02/18/17 Custody Officer Relationship Specialty Start Date End Date Wilma Dial MD [address] [place] [address] PCP - General Internal Medicine 02/18/17 Custody Officer Relationship Specialty Start Date End Date Wilma Dial MD [address] [place] [address] PCP - General Internal Medicine 02/18/17 Custody Officer Relationship Specialty Start Date End Date Wilma Dial MD [address] [place] [address] PCP - General 02/01/19 Wilma Dial MD [address] [address] [facility] Attributed Provider 06/01/21 Krissy Renae CMA Construction AssistantSeo Team Lead 09/17/22 Custody Officer Relationship Specialty Start Date End Date Wilma Dial MD [address] [address] PCP - General 02/01/19 Wilma Dial MD [address] [place] [address] PCP - [facility] Attributed Provider 06/01/21 Custody Officer Relationship Specialty Start Date End Date Wilma Dial MD [address] [address] PCP - General 02/01/19 Wilma Dial MD [address] [address] PCP - [facility] Attributed Provider 06/01/21 FOR RECORDS PERTAINING TO PATIENTS WHO ARE OR HAVE BEEN ENROLLED IN A CHEMICAL DEPENDENCY/SUBSTANCEABUSE PROGRAM, SOME INFORMATION MAY BE OMITTED. This clinical summary was aggregated from multiple sources. Caution should be exercised in using it in the provision of clinical care. This summary normalizes information from multiple sources, and as a consequence, information in this document may materially change the coding, format and clinical context of patient data. In addition, data may be omitted in some cases. CLINICAL DECISIONS SHOULD BE BASED ON THE PRIMARY CLINICAL RECORDS. [facility] [employer] [facility]. provides no warranty or guarantee of the accuracy or completeness of information in this document.
[2023-06-04 10:21] LABS: Absolute Neutrophil Count 4.5 X10^3/uL (2.0-7.7); Basophil# 0.05 X10^3/uL; Basophil% 0.7 % (0-1); Eosinophil# 0.29 X10^3/uL; Eosinophils% 4.1 % (0-5); Hematocrit 47.1 % (40-54); Hemoglobin 16.2 g/dL (13.0-16.5); Lymphocyte % 22.4 % (19-41); Mean Corp Hgb Conc 34.4 g/dL (32-36); Mean Corpuscular Hgb 31.1 pg (27.0-32.0); Mean Corpuscular Volume 90.4 fL (80-94); Mean Platelet Vol. 11.5 fl (6.2-12.0); Monocyte# 0.68 X10^3/uL; Monocyte% 9.5 % (0-10); NRBC Flagged by Analyzer 0 % (0-5); Platelet Count 235 K/mm3 (150-450); RBC Distribution Width CV 12.1 % (11.6-14.6); RBC Distribution Width SD 40.3 fl (35.1-43.9); Red Blood Count 5.21 M/mm3 (4.6-6.2); White Blood Count 7.1 K/mm3 (4.4-11.0)
[2023-06-04 10:50] LABS: Anion Gap 3 (5-15); BUN 16 mg/dL (7-18); BUN/Creat Ratio 15.2 RATIO (10-20); Chloride 107 mmol/L (98-107); Creatinine, Serum 1.05 mg/dL (0.70-1.30); EST Glomerular Filtration Rate 74 mL/min (>60); Est Glom Filt Rate - Afr Amer 90 mL/min (>60); Glucose 142 mg/dL (74-106); Magnesium 2.4 mg/dL (1.6-2.6); Potassium 4.5 mmol/L (3.5-5.1); Sodium Level 139 mmol/L (136-145); Thyroid Stim Hormone (TSH) 1.58 uIU/mL (0.358-3.74)
== END | disposition home or self-care (01) ==
PROVIDERS: PCP Internal Medicine; Referring Provider Physician Assistant Medical; Visit Provider Physician Assistant Medical
DX: E11.9 Type 2 diabetes mellitus without complications (principal); I48.0 Paroxysmal atrial fibrillation; R00.1 Bradycardia, unspecified
CPT/HCPCS: 36415; 80048; 83735; 84443; 85025

== ENCOUNTER → 2024-10-03 | Outpatient (CLI) | payer MEDICARE, OTHER, SELFPAY ==
--- NOTE | 2024-10-03 06:42 | ECHOCS_ITS ---
Reason For Study Reason For Study: AFIB/FLUTTER Procedure This was a 2D Doppler, Color Flow transthoracic echocardiogram. The study was technically difficult. Contrast injection was performed. Exam performed in department. Left Ventricle Normal LV size. The estimated ejection fraction is 53 %. There is mild global hypokinesis of the left ventricle. Right Ventricle Normal right ventricle. Normal systolic function. Atria The left atrium is mildly enlarged. Normal right atrium. Mitral Valve Normal mitral valve. Tricuspid Valve Normal tricuspid valve. Mild (1+) tricuspid valve insufficiency. Pulmonary artery systolic pressure is 24 mmHg. Aortic Valve Trisinus/trileaflet aortic valve. Pulmonic Valve Normal pulmonic valve. Great Vessels Mildly dilated aortic root. The pulmonary artery is normal size. Inferior vena cava collapse with respiration. Pericardium/Pleural No pericardial effusion. Medication 22 gauge I.V. with prn adaptor inserted into left arm. Diluted definity 1ml given slow IV push to enhance endocardial definition. MMode/2D Measurements & Calculations LVIDd: 4.9 cm IVSd: 0.91 cm Ao root diam: 4.0 cm LVIDs: 3.5 cm LVPWd: 1.3 cm RVDd: 4.1 cm FS: 28.9 % LAV(MOD-bp): 61.6 ml LVAd ap4: 36.3 cm2 SV(MOD-sp4): 66.4 ml LAV(MOD-bp) Indexed: 26.4 ml/m2 LVLd ap4: 8.4 cm SI(MOD-sp4): 28.5 ml/m2 LAV(MOD-sp2): 62.4 ml EDV(MOD-sp4): 132.0 ml LAV(MOD-sp4): 59.9 ml EDV(sp4-el): 133.3 ml LVAs ap4: 23.3 cm2 LVLs ap4: 7.0 cm ESV(MOD-sp4): 65.6 ml ESV(sp4-el): 66.0 ml EF(MOD-sp4): 50.3 % EF(sp4-el): 50.5 % SV(sp4-el): 67.3 ml LA A4 area: 21.4 cm2 LA dimension(2D): 4.6 cm RA A4 area: 20.0 cm2 TAPSE: 2.1 cm Doppler Measurements & Calculations MV E max hollie: 75.9 cm/sec MV V2 max: 78.2 cm/sec Ao V2 max: 74.8 cm/sec MV max P.4 mmHg Ao max P.2 mmHg MV V2 mean: 44.7 cm/sec Ao V2 mean: 54.0 cm/sec MV mean P.94 mmHg Ao mean P.3 mmHg MV V2 VTI: 21.6 cm Ao V2 VTI: 16.1 cm AV (velocity ratio): 0.94 LV V1 max: 75.5 cm/sec TR max hollie: 227.6 cm/sec LV V1 max P.3 mmHg TR max P.7 mmHg LV V1 mean P.2 mmHg LV V1 mean: 52.1 cm/sec LV V1 VTI: 15.1 cm ECHO/Echo Complete W/ Contrast Interpretation Summary Mildly dilated aortic root. The estimated ejection fraction is 53 %. Normal LV size. There is mild global hypokinesis of the left ventricle. Mild (1+) tricuspid valve insufficiency. Pulmonary artery systolic pressure is 24 mmHg. Contrast injection was performed. Ordering Physician: Leonora Araya Referring Physician: Claude Calix Performed By: Rc Branham RCS
--- NOTE | 2024-10-03 11:46 | STRESSREP ---
Stress Test Report Exercise myocardial perfusion stress test. 69-year-old man with a history of fatigue Stress protocol: Resting EKG demonstrates normal sinus rhythm with a rate of 70 bpm resting blood pressure is 124/72 mmHg. The patient exercised according to the regular Enzo protocol for a total duration of 6 minutes attaining a maximum heart rate of 164 bpm which was 109% of maximum predicted heart rate; the maximum workload was 7.2 metabolic equivalents. At rest there were no ST or T wave changes noted to suggest ischemia and at peak exercise upsloping ST changes only were noted which did not meet the criteria for ischemia. No clinical angina was noted the test was terminated due to the target heart rate being achieved/fatigue. The peak blood pressure was 174/64 mmHg. Rate-pressure product was 20,700. Myocardial perfusion protocol. 14.5 mCi of technetium 99m sestamibi was injected at rest. The patient exercised according to regular Enzo protocol for total duration of 6-minute and at peak exercise 44.3 mCi of technetium 99m sestamibi was injected stress images were obtained stress and rest images were reconstructed in comparing the short axis vertical long and horizontal long axis. Gated images were also obtained. Perfusion SPECT analysis: Review of the stress images demonstrate normal uptake of tracer noted in all areas of the myocardium. The resting images similarly demonstrate normal uptake of tracer noted in all areas of the myocardium. No areas of reversibility are noted to suggest ischemia no previous infarct was noted. Gated SPECT analysis: The gated ejection fraction is 60%. Conclusion: Normal exercise myocardial perfusion stress test at a moderate work Preserved ejection fraction.
== END | disposition home or self-care (01) ==
LOC: CVS 06:39
PROVIDERS: PCP Internal Medicine; Referring Provider Pediatrics; Visit Provider Physician Assistant Medical
DX: I48.0 Paroxysmal atrial fibrillation (principal); R53.83 Other fatigue; R06.02 Shortness of breath; Z79.899 Other long term (current) drug therapy
CPT/HCPCS: 78452; 93017; 93306; A9500; Q9957; A4216; C8929